=== PATIENT | female | born 1955 | race Caucasian/White ===

== ENCOUNTER 2017-08-27 15:26 | Emergency (ER) | payer OTHER ==
[~2017-08-27] VITALS: Ht 162.6 cm; Wt 93.4 kg
--- NOTE | 2017-08-27 17:32 | RADIOLOGY REPORT ---
EXAMINATION: XR ELBOW, RIGHT CLINICAL INFORMATION: Rule out effusion versus infectious process. COMPARISON: None TECHNIQUE: AP, lateral, and oblique views of the right elbow. FINDINGS: There is moderate soft tissue thickening overlying the olecranon with associated skin thickening and infiltration. There is no associated calcification or subcutaneous emphysema. No right elbow fracture is seen. The joints maintain anatomic alignment. The joint spaces are preserved. There is no definite joint effusion. IMPRESSION: Moderate soft tissue thickening overlying the olecranon with associated skin thickening and infiltration. The findings are most suggestive of olecranon bursitis. No subcutaneous emphysema, fracture, or definite joint effusion is seen.
--- NOTE | 2017-08-27 20:23 | ED UPPER/LOWER EXTREMITY COMPL ---
History of Present Illness General Chief Complaint: Skin Rash/ Abcess Stated Complaint: RASH Source: patient Exam Limitations: no limitations Vital Signs & Intake/Output Vital Signs & Intake/Output Vital Signs Date Time Temp Pulse Resp B/P B/P Pulse O2 O2 Flow FiO2 Mean Ox Delivery Rate 08/27 1620 99.1 61 16 130/84 99 Room Air Allergies Coded Allergies: atropine (Intermediate, RASH, SWELLING 07/07/17) Reconcile Medications Cephalexin (Keflex) 500 MG CAPSULE 1 CAP PO TID bursitis Meloxicam (Mobic) 15 MG TABLET 1 TAB PO DAILY PRN pain Triage Note: 61F WITH REDNESS, SWELLING AND SEVERE PAIN TO RIGHT ELBOW X1 DAY, UNABLE TO TOLERATE TOUCH. PAIN RADIATES UP AND DOWN ARM. WENT TO WALK IN WHICH REFERRED HER TO ED FOR ANTIBIOTICS AND POSSIBLE DRAINAGE. DENIES RECENT TRAUMA OR INJURY. TEMP 99.1 MEDICATED WITH MOTRIN FOR PAIN Triage Nurses Notes Reviewed? yes Onset: Abrupt Duration: hour(s): (10) Timing: single episode today Severity: mild Pain/Injury Location: Right: Elbow. Modifying Factors: Improves With: pain medication. Associated Symptoms: swelling, redness, numbness, stiffness HPI: Patient is a 61-year-old female with past medical history of asthma, anxiety, depression who presents emergency department for further evaluation of right elbow redness and swelling that began this morning when patient woke up. She reports sudden onset. She denies trauma or inciting event prior to symptoms. She states that area is very tender to touch. She reports improvement in pain following Motrin administered here in ED. patient has no history of a similar rash. She reports that she is getting over a mild cold with ongoing nasal congestion, cough, and postnasal drip. She denies fever, chills, nausea, vomiting, abdominal pain, tick siting. (Libby SHRESTHA,Marissa Cordova) Past History Travel History Traveled to [place] past 21 day No Medical History Any Pertinent Medical History? see below for history Neurological: NONE EENT: NONE Cardiovascular: NONE Respiratory: asthma Gastrointestinal: NONE Hepatic: NONE Renal: NONE Musculoskeletal: NONE Psychiatric: anxiety, depression Endocrine: NONE Surgical History Surgical History: GASTRIC SURGERY Psychosocial History What is your primary language Khmer Tobacco Use: Never used Family History Hx Contributory? No (Marissa Vergara) Review of Systems Review of Systems Constitutional: Reports: no symptoms. EENTM: Reports: see HPI. Respiratory: Reports: no symptoms. Cardiovascular: Reports: no symptoms. Gastrointestinal/Abdominal: Reports: no symptoms. Genitourinary: Reports: no symptoms. Musculoskeletal: Reports: see HPI. Skin: Reports: see HPI. Neurological/Psychological: Reports: no symptoms. Hematologic/Endocrine: Reports: no symptoms. Immunological: Reports: no symptoms. All Other Systems: Reviewed and Negative (Marissa Vergara) Physical Exam Physical Exam General Appearance: well developed/nourished, no apparent distress, alert, awake Head: atraumatic, normal appearance Eyes: Bilateral: normal appearance. Ears, Nose, Throat: hearing grossly normal Neck: normal inspection, supple, full range of motion Cardiovascular/Respiratory: normal breath sounds, normal peripheral pulses, regular rate/rhythm, no respiratory distress Peripheral Pulses: 2+ radial (R), 2+ radial (L) Shoulder Left: normal range of motion, normal inspection Shoulder Right: normal range of motion, normal inspection Elbow Left: normal range of motion, normal inspection Elbow Right: swelling, tenderness, pain, moderate erythema, swelling and tenderness over olecranon bursa no evidnece of trauma, no abrasions, no discharge, ROM with extention limited d/t swelling/pain Hand Left: normal inspection, normal range of motion Hand Right: normal inspection, normal range of motion Neurologic/Tendon: normal sensation Skin: erythema over olecranon bursa with overlying scaly lesions consistent with psoriasis no abrasions (Marissa Vergara) Progress Differential Diagnosis: cellulitis, compartment syndrome, DVT, fracture, septic arthritis, sprain, tendon injury Plan of Care: X-ray shows no acute fracture however likely swelling consistent with bursitis. Physical exam is consistent with bursitis with erythema and swelling over her olecranon bursa. Patient medicated with meloxicam and antibiotics. She was instructed to follow-up with her primary care physician. Patient will return to emergency department if she has worsening symptoms or other concerns. The patient is nontoxic appearing, vital signs are stable, she is afebrile. The patient agrees with the plan of care. Diagnostic Imaging: Viewed by Me: Radiology Read. Discussed w/RAD: Radiology Read. Radiology Impression: PATIENT: TARA MENDOZA PRESENT AGE: 61 PATIENT ACCOUNT NO: [id number] : 55 LOCATION: [facility] ORDERING PHYSICIAN: Matthew Teresa DO (TBS) SERVICE DATE: 08/27/17 EXAM TYPE: RAD - XRY-ELBOW 3 OR MORE VIEWS, R EXAMINATION: XR ELBOW, RIGHT CLINICAL INFORMATION: Rule out effusion versus infectious process. COMPARISON: None TECHNIQUE: AP, lateral, and oblique views of the right elbow. FINDINGS: There is moderate soft tissue thickening overlying the olecranon with associated skin thickening and infiltration. There is no associated calcification or subcutaneous emphysema. No right elbow fracture is seen. The joints maintain anatomic alignment. The joint spaces are preserved. There is no definite joint effusion. IMPRESSION: Moderate soft tissue thickening overlying the olecranon with associated skin thickening and infiltration. The findings are most suggestive of olecranon bursitis. No subcutaneous emphysema, fracture, or definite joint effusion is seen. DICTATED BY: Aneta Wilson MD DATE/TIME DICTATED:08/27/171723 FUEL TESTING TECHNICIAN:CRISTIAN DATE/TIME TRANSCRIBED:1723 CONFIDENTIAL, DO NOT COPY WITHOUT APPROPRIATE AUTHORIZATION. < Electronically signed in Other Vendor System> SIGNED BY: Aneta Wilson MD 08/27/17 6173 (Libby SHRESTHA,Marissa Cordova) Departure Departure Disposition: HOME OR SELF CARE Condition: Stable Clinical Impression Primary Impression: Bursitis Qualifiers: Bursitis location: elbow Elbow bursitis location: olecranon bursitis Laterality: right Qualified Code: M70.21 - Olecranon bursitis, right elbow Referrals: Cm GOLD,Pool Bobby (PCP/Family) Additional Instructions: Begin antibiotics tonight. Take full course of antibiotics. You were also given meloxicam for pain. Take this medication as needed with food. Follow up with your primary care doctor this week if possible. If your symptoms are worsening and he cannot follow-up with your primary care doctor please return to the emergency department. Please note that there might be incidental findings in your evaluation that are unrelated to the current emergency department visit. Please notify your primary care doctor about this emergency department visit in order to obtain and review all of the testing performed so that these incidental findings can be monitored as needed. If you had an x-ray performed, please understand that some fractures may not be seen on the initial set of x-rays. If your symptoms persist you might need a repeat set of x-rays to check for such a fracture. If you had a laceration evaluated, please understand that foreign bodies such as glass or wood may not be visible to the naked eye or on plain x-rays. If the wound becomes red, swollen, increasingly more painful or if there is any drainage from the wound, please have it reevaluated by a physician for the possibility of a retained foreign body. If you're unable to follow up as outlined in the discharge instructions please return to the emergency department. Thank you for choosing the [facility] Emergency Department for your care. It was a pleasure to serve you today. Departure Forms: Customer Survey General Discharge Information Prescriptions: Current Visit Scripts Cephalexin (Keflex) 1 CAP PO TID #21 CAP Meloxicam (Mobic) 1 TAB PO DAILY PRN pain #15 TAB (Libby SHRESTHA,Marissa Cordova) PA/HOME HEALTH SCHEDULER Co-Sign Statement Statement: ED Attending supervision documentation- [X] I saw and evaluated the patient. I have also reviewed all the pertinent lab results and diagnostic results. I agree with the findings and the plan of care as documented in the PA's/HOME HEALTH SCHEDULER's documentation. [X] I have reviewed the ED Record and agree with the PA's/HOME HEALTH SCHEDULER's documentation. [] Additions or exceptions (if any) to the PAs/HOME HEALTH SCHEDULER's note and plan are summarized below: [] (Carmen GOLD,Brody Davis)
[2017-08-27] MEDS ORDERED: KEFLEX500 M1 PO (21:18)
[2017-08-27] MEDS ORDERED: MOBIC15 M1 PO (21:18)
[2017-08-27 21:28] VITALS: BP 128/68
== END 2017-08-27 21:29 ==
LOC: ERH 15:26
DX: M70.31 Other bursitis of elbow, right elbow (principal)
CPT/HCPCS: 73080-RT